=== PATIENT | female | born 1950 | race Caucasian/White ===

== ENCOUNTER 2019-09-29 17:25 | Observation (INO) | payer BC, MEDICARE ==
[~2019-09-29] VITALS: Ht 160 cm; Wt 79.4 kg
[2019-09-29] MEDS ORDERED: ONDANSETRON HCL INJ 2MG/ML 2ML 2 MG/ML VIAL IV STA (17:33)
[2019-09-29] MEDS ORDERED: ENOXAPARIN SODIUM INJ 100 MG/ML SYR SC STA (17:33)
[2019-09-29] MEDS ORDERED: SODIUM CHLORIDE 0.9% 1000ML 1,000 ML IV STA (17:33)
[2019-09-29] MEDS ORDERED: MORPHINE SULFATE 2 MG/ML SYR 1ML IV STA (17:33)
[2019-09-29] MEDS ORDERED: ASPIRIN 81 MG CHEW TAB PO STA (17:33)
--- NOTE | 2019-09-29 17:34 | Emergency Department Note ---
History of Present Illnes History of Present Illness History of Present Illness This is a 69 year old female . Arrival Mode: Car Material Loader Required: No Onset (how long ago): day(s) (3) Location: chest Quality: pressure Radiation: Reports extremity Severity: moderate Onset quality: gradual Duration (how long): day(s) (3) Timing of current episode: constant Progression: worsening Relieving factors: none Exacerbating factors: none Associated symptoms: Denies cough, Denies diaphoresis, Denies fever/chills, Denies headaches, Denies loss of appetite, Denies malaise, Denies nausea/vomiting Treatments prior to arrival: none Past Medical/Family History Physician Review I have reviewed the patient's past medical and family history. Any updates have been documented here. Social History Smoking Cessation: Never Smoker Counseling Performed: No Any Illegal Drug Use: No TB Exposure/Symptoms: No Physically hurt or threatened: No Family History Family history of heart diseas: Yes Other Any Pre-Existing Lines (PICC,: No Is patient up to date on immun: No Review of Systems ROS Narrative Richa is a 69 year old female that presents with mid chest pain that started 3 days ago and has been constant since yesterday. Patient in NAD at this time Review of Systems Constitutional: Reports no symptoms EENTM: Reports no symptoms Cardiovascular: Reports chest pain; Denies edema, Denies palpitations, Denies syncope Respiratory: Reports no symptoms; Denies change in phlegm color Gastrointestinal: Reports no symptoms; Denies abdominal pain Genitourinary: Reports no symptoms; Denies discharge Musculoskeletal: Reports no symptoms; Denies back pain Integumentary: Reports no symptoms; Denies change in color Neurological: Reports no symptoms; Denies headache Psychological: Reports no symptoms Endocrine: Reports no symptoms Hematological/Lymphatic: Reports no symptoms Physical Exam Related Data Allergies: Coded Allergies: Nhcvget-Wzh-Dav Reductase Inhibitor (Verified Allergy, Unknown, 09/29/19) Sulfa (Sulfonamide Antibiotics) (Verified Allergy, Unknown, 09/29/19) Vital signs reviewed: Yes Physical Exam CONSTITUTIONAL Constitutional: Present well-developed, Present well-nourished HENT HENT: Present normocephalic, Present atraumatic, Present oropharynx clear/moist, Present nose normal HENT L/R: Present left ext ear normal, Present right ext ear normal EYES Eyes: Reports PERRL, Reports conjunctivae normal NECK Neck: Present ROM normal PULMONARY Pulmonary: Present effort normal, Present breath sounds normal CARDIOVASCULAR Cardiovascular: Present regular rhythm, Present heart sounds normal, Present capillary refill normal, Present normal rate GASTROINTESTINAL Abdominal: Present soft, Present nontender, Present bowel sounds normal GENITOURINARY Genitourinary: Present exam deferred SKIN Skin: Present warm, Present dry MUSCULOSKELETAL Musculoskeletal: Present ROM normal NEUROLOGICAL Neurological: Present alert, Present oriented x 3, Present no gross motor or sensory deficits PSYCHOLOGICAL Psychological: Present mood/affect normal, Present judgement normal Results Laboratory Lab results reviewed: Yes Imaging Imaging results reviewed: Yes Diagnostics Tests Diagnostic test(s) reviewed: Yes Procedures 12 Lead ECG Interpretation ECG Interpretation : ECG: ECG 1 Material Loader: Interpreted by ED physician Date: Sep 29, 2019 Time: 17:27 Prior ECG tracings: reviewed Rhythm: sinus rhythm BPM: 78 Clinical Impression: normal ECG Assessment & Plan Medical Decision Making MDM Blood work, EKG and CXR Spoke to Dr Vaughn, admission orders placed, patient updated Reassessment Reassessment time: 18:22 Assessment & Plan Final Impression: (1) Chest pain (2) Hypertension Depart Disposition: ADMITTED OLINDA BARAKAT Sep 29, 2019 17:34
[2019-09-29] MEDS ORDERED: MORPHINE SULFATE 2 MG/ML SYR 1ML IV PRN (17:45)
[2019-09-29] MEDS ORDERED: METOPROLOL TARTRATE 50 MG TAB PO ONE (17:45)
[2019-09-29] MEDS ORDERED: ENOXAPARIN INJ 80 MG/0.8 ML SYR SC ONE (17:45)
[2019-09-29] MEDS ORDERED: ASPIRIN 81 MG CHEW TAB PO ONE (17:45)
[2019-09-29] MEDS ORDERED: FAMOTIDINE 20 MG/2 ML VIAL IV SCH ×2 (17:45→18:00)
[2019-09-29] MEDS ORDERED: ONDANSETRON HCL INJ 2MG/ML 2ML 2 MG/ML VIAL IV PRN (17:45)
[2019-09-29 17:48] LABS: BASOPHILS % 0.3 % (0.0-1.0); EOSINOPHILS # (AUTO) 0.2 (0.0-0.4); EOSINOPHILS % 2.2 % (0.0-6.0); HEMATOCRIT 41.9 % (34.2-44.1); HEMOGLOBIN 13.5 g/dL (12.0-16.0); LYMPHOCYTES # (AUTO) 1.8 (1.0-3.2); MEAN CORPUSCULAR HEMOGLOBIN 29.3 pg (28-32); MEAN CORPUSCULAR HGB CONC 32.2 g/dL (31-35); MEAN CORPUSCULAR VOLUME 90.9 fL (81-99); MONOCYTES # (AUTO) 0.7 (0.2-0.8); MONOCYTES % 10.1 % (4.4-11.3); NEUTROPHILS # (AUTO) 4.2 (2.1-6.9); NEUTROPHILS % 61.1 % (38.7-80.0); PLATELET COUNT 258 x10e3/uL (140-360); RED BLOOD COUNT 4.61 x10e6/uL (3.6-5.1)
[2019-09-29] MEDS ORDERED: ENOXAPARIN INJ 80 MG/0.8 ML SYR SC SCH (18:00)
[2019-09-29 18:05] LABS: ALBUMIN 3.9 g/dL (3.5-5.0); ALBUMIN/GLOBULIN RATIO 1.1 (0.8-2.0); ANION GAP 15.3 mmol/L (8-16); CALCIUM 9.6 mg/dL (8.4-10.2); CREATININE, SERUM 0.94 mg/dL (0.57-1.11); MAGNESIUM 1.9 MG/DL (1.3-2.1); POTASSIUM 4.3 mmol/L (3.5-5.1)
[2019-09-29 18:15] LABS: CREATINE KINASE MB 1.4 ng/mL (0-5.0)
--- NOTE | 2019-09-29 18:22 | Diagnostic Imaging Report ---
EXAMINATION: CHEST SINGLE (PORTABLE) INDICATION: Chest pain ^ERMD ORDER ^[id number] ^[id number] ^Y COMPARISON: None FINDINGS: TUBES and LINES: None. LUNGS: Lungs are well inflated. Lungs are clear. There is no evidence of pneumonia or pulmonary edema. PLEURA: No pleural effusion or pneumothorax. HEART AND MEDIASTINUM: The cardiomediastinal silhouette is unremarkable. BONES AND SOFT TISSUES: No acute osseous lesion. Soft tissues are unremarkable. UPPER ABDOMEN: No free air under the diaphragm. IMPRESSION: No acute thoracic abnormality. Signed by: Dr. Craig Hernandez M.D. on 09/29/2019 6:18 PM
[2019-09-29 19:43] LABS: BILIRUBIN,URINE NEGATIVE (NEGATIVE); CLARITY,URINE CLEAR (CLEAR); COLOR,URINE YELLOW (YELLOW); KETONES,URINE NEGATIVE (NEGATIVE); LEUKOCYTE ESTERASE ,URINE TRACE (NEGATIVE); NITRITE,URINE NEGATIVE (NEGATIVE); PROTEIN,URINE DIPSTICK NEGATIVE (NEGATIVE); URINE UROBILINOGEN 0.2 mg/dL (0.2 - 1)
[2019-09-29 19:55] LABS: EPITHELIAL CELLS,URINE RARE /LPF
[2019-09-29] MEDS ORDERED: SIMVASTATIN 20 MG TAB PO SCH (21:00)
[2019-09-30] MEDS ORDERED: LISINOPRIL 10 MG TAB PO SCH (09:00)
[2019-09-30] MEDS ORDERED: LISINOPRIL 20 MG TAB PO SCH (09:00)
[2019-09-30] MEDS ORDERED: METOPROLOL TARTRATE 25 MG TAB PO SCH (09:00)
== END 2019-09-29 23:00 | disposition left against medical advice (07) ==
LOC: ER 18:00 → INTOOBSV 18:01 → ERHOLD 18:01
PROVIDERS: ADMIT Family Medicine; ATTEND Family Medicine
DX: R07.9 Chest pain, unspecified (principal); I10 Essential (primary) hypertension; Z88.2 Allergy status to sulfonamides; Z88.8 Allergy status to other drugs, medicaments and biological substances; Z11.59 Encounter for screening for other viral diseases
CPT/HCPCS: 36415; 71045; 80053; 81001; 82550; 82553; 83690; 83735; 83880; 84484; 85025; 93005; 99284; G0378; J1650; J7030; U0002